=== PATIENT | female | born 1985 | race Caucasian/White ===

== ENCOUNTER 2017-10-09 08:57 | Emergency (ER) | payer SELFPAY ==
[2017-10-09] MEDS ORDERED: NS 0.9% 1000 ML* 1,000 ML IV ONE ×2 (09:33→10:54)
[2017-10-09] MEDS ORDERED: Ondansetron INJ* 2 MG/ML VIAL IV ONE (09:33)
[2017-10-09] MEDS ORDERED: Ondansetron INJ* 2 MG/ML VIAL ONE (09:35)
[2017-10-09] MEDS ORDERED: DOXYcycline IV* 100 MG in NS 0.9% 250 ML* 250 ML IVPB ONE (09:35)
--- NOTE | 2017-10-09 09:36 | ED ---
Nausea/Vomiting/Diarrhea HPI - HPI Summary HPI Summary: patient is an otherwise healthy 32-year-old female presenting to the ED after 5 days of 10-20 bouts per day of watery diarrhea. She endorses being scallops on Thursday evening. 2 hours later she developed the diarrhea which has remained persistent since that time. Endorses nausea without vomiting. Diarrhea is watery and brown in consistency, non-malodorous and does not appear to be rice water-like. Endorses abdominal pain diffusely throughout. Denies chance of . Last bowel movement 20 minutes [employer]. She feels very dehydrated. Allergy to doxycycline. She endorses fever of 103.1 3 days ago with sweats and chills. She has not had a fever since that time, but continues to endorse sweats and chills. She has been taking Tylenol and ibuprofen with minimal relief. - History of Current Complaint Chief Complaint: EDNauseaVomitDiarrh Stated Complaint: WEAKNESS/DEHYDRATION Time Seen by Provider: 10/09/17 09:05 Hx Obtained From: Patient ?: No Onset/Duration: Sudden Onset Timing: Constant Severity Initially: Moderate Severity Currently: Moderate Pain Intensity: 0 Pain Scale Used: 0-10 Numeric Character: Cramping Aggravating Factor(s): Food Alleviating Factor(s): Nothing Nausea/Vomiting Presence: None Diarrhea Presence: Yes Diarrhea Frequency: Every 1-2 hours Diarrhea Duration: 3-7 days Diarrhea Characteristics: Watery - Risk Factors Influenza Risk Factors: Negative - Allergies/Home Medications Allergies/Adverse Reactions: Allergies Allergy/AdvReac Type Severity Reaction Status Date / Time doxycycline Allergy Nausea And Verified 10/09/17 09:40 Vomiting anxiety meds Allergy Unknown Uncoded 10/09/17 09:04 Reaction Details PMH/Surg Hx/FS Hx/Imm Hx Previously Healthy: Yes Psychiatric History: Reports: Hx Depression Denies: Hx Eating Disorder, Hx of Violent Episodes Against Others - Immunization History Hx Pertussis Vaccination: No Immunizations Up to Date: Unable to Obtain/Confirm Infectious Disease History: No Infectious Disease History: Denies: Traveled Outside the [place] in Last 30 Days - Social History Occupation: Employed Full-time Lives: With Family Alcohol Use: Rare Hx Substance Use: No Substance Use Type: Reports: None Hx Tobacco Use: No Smoking Status (MU): Never Smoked Tobacco Review of Systems Positive: Fever Negative: Photophobia, Blurred Vision Negative: Palpitations, Chest Pain Negative: Shortness Of Breath, Cough Positive: Abdominal Pain, Diarrhea, Nausea. Negative: Vomiting Genitourinary: Negative Positive: no symptoms reported, see HPI Negative: Arthralgia, Myalgia Negative: Rash, Bruising Positive: Weakness. Negative: Headache, Paresthesia, Numbness, Syncope All Other Systems Reviewed And Are Negative: Yes Physical Exam Triage Information Reviewed: Yes Vital Signs On Initial Exam: Initial Vitals Temp Pulse Resp BP Pulse Ox 97.8 F 100 16 104/72 98 10/09/17 08:59 10/09/17 08:59 10/09/17 08:59 10/09/17 08:59 10/09/17 08:59 Vital Signs Reviewed: Yes Appearance: Positive: Well-Appearing, Well-Nourished Skin: Positive: Warm, Skin Color Reflects Adequate Perfusion Head/Face: Positive: Normal Head/Face Inspection Eyes: Positive: EOMI, STEF, Conjunctiva Clear Neck: Positive: Supple, No Lymphadenopathy Respiratory/Lung Sounds: Positive: Clear to Auscultation, Breath Sounds Present Cardiovascular: Positive: RRR, Pulses are Symmetrical in both Upper and Lower Extremities Abdomen Description: Positive: Soft, Other: - Tenderness throughout Bowel Sounds: Positive: Present, Hyperactive Musculoskeletal: Positive: Normal, Strength/ROM Intact Neurological: Positive: Sensory/Motor Intact, Alert, Oriented to Person Place, Time Psychiatric: Positive: Affect/Mood Appropriate AVPU Assessment: Alert Diagnostics - Vital Signs Vital Signs Temp Pulse Resp BP Pulse Ox 10/09/17 08:59 97.8 F 100 16 104/72 98 - Laboratory Result Diagrams: 10/09/17 09:45 10/09/17 09:45 Lab Statement: Any lab studies that have been ordered have been reviewed, and results considered in the medical decision making process. Naus/Vom/Diarrhea Course/Dx - Course Course Of Treatment: During the course treatment, the patient is evaluated for persistent diarrhea 5 days. She endorses eating scallops which "tasted funny" on Thursday and has had diarrhea since that time. Denies diarrhea that is malodorous or yellow in color. Denies any rice water-like diarrhea. Endorses light brown watery stool 10-20 times per day. She states she has been unable to eat due to having diarrhea immediately following. She has never had anything like this before. Denies any camping trips or contaminated water intake. She is given 2 L of fluids and Zofran with good relief. She states she is feeling much improved. Diarrhea source likely secondary to undercooked shellfish. Will cover for vibrio parahaemolyticus species. Azithromycin 500mg once daily 3 days according to UTD. Stool sample sent to lab. We'll call with any differing results. - Differential Dx/Diagnosis Differential Diagnoses - Female: Other - Diarrhea, Vibrio parahaemolyticus, salmonella, food poisoning, gastroenteritis Provider Diagnoses: Diarrhea Is Visit Related: No Condition At Discharge: Stable Discharge - Sign-Out/Discharge Documenting (check all that apply): Patient Departure - Discharge Plan Condition: Stable Disposition: HOME Prescriptions: Azithromycin TAB* [Zithromax TAB (Z-TELLY) 250 mg #6 tabs] 500 mg PO DAILY #6 tab Ondansetron ODT TAB* [Zofran 4 MG Odt TAB*] 4 mg PO Q6H PRN #12 tab.odt MDD 4 PRN Reason: Nausea Patient Education Materials: Cholera (ED) Referrals: Jennie Cox NP [Primary Care Provider] - Additional Instructions: I believe you to have a species of vibrio SIMILAR to vibrio cholera This is called vibrio parahaemolyticus and is usually caused by undercooked shellfish This is usually self limiting and supportive care is warranted However, antibiotics tend to shorten the course of infection Take Azithromycin 2 tabs (250mg each) once daily x 3 days beginning today Drink plenty of gatorade to replenish electrolytes If you develop worsening symptoms or fever, return to the ED Do not take anti-diarrheals. - Billing Disposition and Condition Condition: STABLE Disposition: Home
[2017-10-09 10:06] LABS: ABS Basophils 0 10^3/ul (0-0.2); ABS Eosinophils 0.1 10^3/ul (0-0.6); ABS Lymphocytes 0.5 10^3/ul (1.0-4.8); ABS Monocytes 0.8 10^3/ul (0-0.8); ABS Neutrophils 6.4 10^3/ul (1.5-7.7); ABS Nucleated RBC 0 10^3/ul; Eosinophil % 1.5 % (0-6); Hematocrit 40 % (35-47); Hemoglobin 13.7 g/dl (12.0-16.0); Lymphocyte % 6.5 % (25-47); Mean Corpuscular HGB Conc 35 g/dl (31-36); Mean Corpuscular Hemoglobin 30 pg (27-31); Mean Corpuscular Volume 86 fL (80-97); Mean Platelet Volume 7.9 um3 (7.4-10.4); Nucleated Red Blood Cells % 0; Platelet Count 216 10^3/ul (150-450); Red Blood Count 4.61 10^6/ul (4.00-5.40); Red Cell Distribution Width 13 % (10.5-15); White Blood Count 7.8 10^3/ul (3.5-10.8)
[2017-10-09 10:21] LABS: EGFR Non-African American 112.3 (>60)
[2017-10-09 13:02] VITALS: BP 112/74
== END 2017-10-09 13:01 | disposition home or self-care (01) ==
LOC: ED 08:57
DX: R19.7 Diarrhea, unspecified (principal); R11.0 Nausea; R50.9 Fever, unspecified; R53.1 Weakness
CPT/HCPCS: 36415; 80053; 82272; 83605; 83630; 83690; 83735; 84702; 85025; 86140; 87045; 87046; 87899; 96374; 96375; 99283; J2405